=== PATIENT | female | born 1935 | race Hispanic/Latino ===

== ENCOUNTER 2016-08-23 17:51 | Outpatient (CLI) | payer MEDICARE ==
[2016-08-23 19:30] LABS: #Basophils 0.2 thou/uL (0.0-0.2); #Eosinphils 0.3 thou/uL (0.0-0.7); #Lymphocytes 2.7 thou/uL (1.20-3.40); #Monocytes 0.7 thou/uL (0.11-0.59); #Neutrophils 6.5 thou/uL (1.40-6.50); %Eosinophils 3.2 % (0.0-10.0); %Monocytes 6.8 % (0.0-10.0); Hematocrit 43.7 % (36.0-47.0); Mean Platelet Volume 5.9 fL (7.4-10.4); Red Blood Cell (RBC) Count 4.89 mill/uL (4.20-5.40); White Blood Cell (WBC) Count 10.5 thou/uL (4.8-10.8)
[2016-08-23 21:07] LABS: ALT (SGPT) 22 U/L (0-55); AST (SGOT) 27 U/L (5-34); Alkaline Phosphatase 93 U/L (40-150); Anion Gap 19 mmol/L (10-20); BUN (Urea Nitrogen) 14 mg/dL (9.8-20.1); Bilirubin, Total 0.3 mg/dL (0.2-1.2); Calc. Creatinine Clearance 0 mL/min (70-130); Calcium 9.4 mg/dL (7.8-10.44); Carbon Dioxide 20 mmol/L (23-31); Chloride 107 mmol/L (98-107); Estimated GFR-MDRD 47; Globulin 3.2 g/dL (2.4-3.5); LDL Cholesterol, Calculated 139 mg/dL
== END 2016-08-23 17:52 | disposition home or self-care (01) ==
LOC: HPCALD 17:51
PROVIDERS: ATTEND Family Medicine
DX: E78.5 Hyperlipidemia, unspecified (principal); E89.0 Postprocedural hypothyroidism; I10 Essential (primary) hypertension
CPT/HCPCS: 80053; 80061; 84439; 84443; 85025

== ENCOUNTER 2016-09-01 14:40 | Emergency (ER) | payer MEDICARE ==
--- NOTE | 2016-09-01 16:23 | ERRECORD ---
[facility] EMERGENCY RECORD HPI FLU-LIKE SYNDROME (16:01 [facility]) CHIEF COMPLAINT: Patient presents for evaluation of body aches, Denies fever, Patient presents for evaluation of upper respiratory infection, Patient presents for evaluation of cough and sore throat. HISTORIAN: History provided by patient. LOCATION: Symptoms are generalized. QUALITY: Unable to describe the quality of the pain. SEVERITY: Maximum severity of symptoms mild, Currently symptoms are mild. TIME COURSE: Gradual onset of symptoms, 15, hours prior to arrival, There has been no change in the patient's symptoms over time. ASSOCIATED WITH: No associated abdominal pain, No associated chest pain, Associated with cough, No associated diarrhea, No associated headache, No associated vomiting, No associated neck pain, No associated rash, No associated shortness of breath, No associated urinary tract infection signs or symptoms. EXACERBATED BY: Patient's condition exacerbated by nothing. RELIEVED BY: Patient's condition relieved by nothing. ROS (16:01 [facility]) CONSTITUTIONAL: Historian denies chills, denies fatigue, denies fever, denies night sweats, denies weakness. EYES: Negative eye review of systems. ENT: Historian reports otalgia, denies otorrhea, reports rhinorrhea, reports sore throat, reports voice changes. right neck to right ear. CARDIOVASCULAR: Negative cardiovascular review of systems. RESPIRATORY: Historian reports cough. GI: Negative gastrointestinal review of systems. GENITOURINARY FEMALE: Negative genitourinary review of systems. MUSCULOSKELETAL: Historian reports arthralgias, reports myalgias. SKIN: Negative skin review of systems. NEUROLOGIC: Historian reports headache. ENDOCRINE: Negative endocrine review of systems. PSYCHIATRIC: Negative psychiatric review of systems. PAST MEDICAL HISTORY MEDICAL HISTORY: Past medical history includes endocrine disease, hypothyroidism, Past medical history includes gastrointestinal disease, gastroesophageal reflux disease, Past medical history includes history of hyperlipidemia, history of hypertension. (14:58 [facility]) FEMALE SURGICAL HISTORY: Surgical history of thyroidectomy, Notes: PARTIAL AT AGE 41. (14:58 [facility]) PSYCHIATRIC HISTORY: No previous psychiatric history. (14:58 [facility]) SOCIAL HISTORY: Patient denies alcohol use, Patient denies drug use, Patient has no smoking history. (14:58 [facility]) &a-1R&a+25V*p+0X*v9761P*c202B*c15G*c2P*p-0X&a-25V&a+1R Name: Lyudmila Florence : 1935 F80 MedRec: [id number] AcctNum: [id number] Prepared: Sat Sep 01, 2016 22:51 by Interface Page 1 of 3 pMD [facility] EMERGENCY RECORD NOTES: I have reviewed the nursing documentation regarding PMHX, social hx, family hx, and surgical history as well as vitals and triage notes and agree. (15:30 [facility]) KNOWN ALLERGIES codeine phosphate (bulk): Reaction: Rash, Source: Patient CURRENT MEDICATIONS gemfibrozil: TABLET : Strength - 600 mg : ORAL Patient Dose: 2 tab(s) Oral 2 times a day. (14:50 [facility]) levothyroxine: TABLET : Strength - 75 mcg : ORAL Patient Dose: 1 tab(s) Oral once a day (in the morning). (14:51 [facility]) pantoprazole: TABLET, DELAYED RELEASE (ENTERIC COATED) : Strength - 40 mg : ORAL Patient Dose: 1 tab(s) Oral once a day. (14:52 [facility]) atenolol: TABLET : Strength - 25 mg : ORAL Patient Dose: 1 tab(s) Oral once a day (in the morning). (14:52 [facility]) amLODIPine: TABLET : Strength - 10 mg : ORAL Patient Dose: 1 tab(s) Oral once a day. (14:53 [facility]) aspirin: TABLET : Strength - 325 mg : ORAL Patient Dose: 1 tab(s) null once a day. (14:53 [facility]) ZyrTEC: TABLET : Strength - 10 mg : ORAL Patient Dose: 1 tab(s) Oral once a day. (14:54 [facility]) Glucosamine: TABLET : Strength - 500 mg : ORAL Patient Dose: 2 tab(s) Oral once a day. (14:54 [facility]) VITAL SIGNS VITAL SIGNS: BP: 166/75, Pulse: 60, Resp: 18, Temp: 98.4 (Oral), Pain: 6, O2 sat: 96, Time: 09/01/2016 14:47. (14:47 [facility]) BP: 138/81, Pulse: 60, Resp: 18, Temp: 98.3 (Oral), Pain: 3, O2 sat: 97, Time: 09/01/2016 16:10. (16:10 [facility]) PHYSICAL EXAM (16:01 [facility]) CONSTITUTIONAL: Vital signs reviewed, Patient afebrile, Pulse normal, Blood pressure normal, Respiratory rate normal, Patient appears non toxic, Patient appears pain free, Patient alert and oriented to person, place and time. HEAD: Head exam normal, Head exam included findings of head atraumatic, normocephalic. EYES: Eye exam normal, Eye exam included findings of eyelids normal to inspection, Pupils equally round and reactive to light, &a-1R&a+25V*p+0X*j1169V*c202B*c15G*c2P*p-0X&a-25V&a+1R Name: Lyudmila Florence : 1935 F80 MedRec: [id number] AcctNum: [id number] Prepared: Sat Sep 01, 2016 22:51 by Interface Page 2 of 3 pMD [facility] EMERGENCY RECORD Extraocular muscles intact, Conjunctiva normal, Sclera normal, Fundoscopic exam normal. ENT: ENT exam normal, Ear exam normal, Nose exam included findings of, congestion and rhinorrhea, Pharynx exam normal, Uvula exam normal, Tonsil exam normal, Mouth exam normal, teeth normal. NECK: Neck exam normal, Neck exam included findings of normal range of motion, Trachea midline, no meningeal signs. RESPIRATORY CHEST: Respiratory and chest exam normal, Respiratory exam included findings of no respiratory distress, Breath sounds clear. CARDIOVASCULAR: Cardiovascular assessment normal, Cardiovascular exam included findings of heart rate regular rate and rhythm, Heart sounds normal. ABDOMEN FEMALE: Abdominal exam normal, Abdominal exam included findings of abdomen nontender, Bowel sounds normal, Liver normal, Spleen normal, no distension, no peritoneal signs. BACK: Back exam normal. UPPER EXTREMITY: Upper extremity exam normal. LOWER EXTREMITY: Lower extremity exam normal. NEURO: Neuro exam normal, [place] coma scale 15, Neuro exam findings include patient oriented to person, place and time, Speech normal, Gait normal, Memory normal, Cranial nerves intact. SKIN: Skin exam normal, Skin exam included findings of skin warm, dry, and normal in color, no rash. LYMPHATIC: Lymphatic exam normal. PSYCHIATRIC: Psychiatric exam included findings of patient oriented to person place and time, Normal affect, Judgment normal, Insight normal, Remote memory normal, Recent memory normal, Concentration normal. PROBLEM LIST No recorded problems DIAGNOSIS (16:05 [facility]) FINAL: PRIMARY: upper respiratory infection. PRESCRIPTION No recorded prescriptions DISPOSITION PATIENT: Disposition Type: Discharge, Disposition: *Discharge Home. (16:05 [facility]) Patient left the department. (16:16 [facility]) Martinez: RASHIDA=MD Conor, Ender FRIEDMAN=MAGNUS Taylor, Leslie &a-1R&a+25V*p+0X*d1205C*c202B*c15G*c2P*p-0X&a-25V&a+1R Name: Lyudmila Florence : 1935 F80 MedRec: [id number] AcctNum: [id number] Prepared: Federico Sep 01, 2016 22:51 by Interface Page 3 of 3 pMD MTDD
--- NOTE | 2016-09-01 16:28 | PICIS ---
[facility] EMERGENCY RECORD TRIAGE (14:49 [facility]) TRIAGE NOTES: SORE THROAT AND COUGH STARTED YESTERDAY. (14:49 [facility]) PATIENT: NAME: Lyudmila Florence, AGE: 80, GENDER: female, : Sat1935, TIME OF GREET: Sat Sep 01, 2016 14:41, PREFERRED LANGUAGE: Trinidadian, ETHNICITY: or , ECODE BILLING MAP: [facility], SSN: [id number], Zip Code: [address], KG WEIGHT: 63.5 (est.), PHONE: , , , PERSON ID: [id number], PAYMENT: X Medicare, PCP: MD Butterfield Kyle. (14:49 [facility]) COMPLAINT: Throat Pain. (14:49 [facility]) ADMISSION: URGENCY: 4 Non Urgent, ADMISSION SOURCE: Home, TRANSPORT: CAR, BED: WAIT. (14:49 [facility]) IMMUNIZATIONS: Flu vaccine up to date, Tetanus immunization up to date, Pneumococcal vaccine up to date. (14:58 [facility]) SIRS SCORING: Heart Rate 55-109 (0), Temp range 96.8-101.1 (0), respiratory rate 12-24 (0), Mental Status altered: no (0). (14:58 [facility]) TRIAGE SCREENING: Patient denies suicidal ideation, Patient denies presence of domestic violence. (14:58 [facility]) TREATMENTS IN PROGRESS: Treatments given Prehospital: TYLENOL 1300. (14:58 [facility]) PROVIDERS: TRIAGE NURSE: Leslie Taylor RN. (14:49 [facility]) VITAL SIGNS: BP 166/75, Pulse 60, Resp 18, Temp 98.4, (Oral), Pain 6, O2 Sat 96, Time 09/01/2016 14:47. (14:47 [facility]) PREVIOUS VISIT ALLERGIES: codeine phosphate (bulk). (14:49 [facility]) codeine phosphate (bulk). (14:58 [facility]) KNOWN ALLERGIES codeine phosphate (bulk): Reaction: Rash, Source: Patient CURRENT MEDICATIONS gemfibrozil: TABLET : Strength - 600 mg : ORAL Patient Dose: 2 tab(s) Oral 2 times a day. (14:50 [facility]) levothyroxine: TABLET : Strength - 75 mcg : ORAL Patient Dose: 1 tab(s) Oral once a day (in the morning). (14:51 [facility]) pantoprazole: TABLET, DELAYED RELEASE (ENTERIC COATED) : Strength - 40 mg : ORAL Patient Dose: 1 tab(s) Oral once a day. (14:52 [facility]) atenolol: TABLET : Strength - 25 mg : ORAL Patient Dose: 1 tab(s) Oral once a day (in the morning). (14:52 [facility]) amLODIPine: TABLET : Strength - 10 mg : ORAL Patient Dose: 1 tab(s) Oral once a day. (14:53 [facility]) aspirin: &a-1R&a+25V*p+0X*y0080E*c202B*c15G*c2P*p-0X&a-25V&a+1R Name: Lyudmila Florence : 1935 F80 MedRec: [id number] AcctNum: [id number] Prepared: Sat Sep 01, 2016 22:57 by Interface Page 1 of 6 pMD [facility] EMERGENCY RECORD TABLET : Strength - 325 mg : ORAL Patient Dose: 1 tab(s) null once a day. (14:53 [facility]) ZyrTEC: TABLET : Strength - 10 mg : ORAL Patient Dose: 1 tab(s) Oral once a day. (14:54 [facility]) Glucosamine: TABLET : Strength - 500 mg : ORAL Patient Dose: 2 tab(s) Oral once a day. (14:54 [facility]) VITAL SIGNS VITAL SIGNS: BP: 166/75, Pulse: 60, Resp: 18, Temp: 98.4 (Oral), Pain: 6, O2 sat: 96, Time: 09/01/2016 14:47. (14:47 [facility]) BP: 138/81, Pulse: 60, Resp: 18, Temp: 98.3 (Oral), Pain: 3, O2 sat: 97, Time: 09/01/2016 16:10. (16:10 [facility]) NURSING PROCEDURE: DISCHARGE NOTE (16:13 [facility]) DISCHARGE: Patient discharged to home, ambulating without assistance, family driving, accompanied by //partner, Summary of Care printed/ provided, Patient requested and was provided an electronic copy of Discharge Instructions, Transition record given to patient, Discharge instructions given to patient, Simple or moderate discharge teaching performed, Patient treated and evaluated by physician. ORDER DETAILS Order Name: Influenza A&B Ag Screen, Status: Active, Time: 15:10 09/01/2016, User: IDALIA, - Ordered for: MD Perdomo Darren, - Entered by: MAGNUS Taylor Rebecca - Federico Sep 01, 2016 15:10, - Quantity: 1, Order Name: Strep Group A Screen, Status: Active, Time: 15:11 09/01/2016, User: [email or web address], - Ordered for: MD Perdomo Darren, - Entered by: MAGNUS Taylor Rebecca - Federico Sep 01, 2016 15:11, - Quantity: 1. HPI FLU-LIKE SYNDROME (16:01 [facility]) CHIEF COMPLAINT: Patient presents for evaluation of body aches, Denies fever, Patient presents for evaluation of upper respiratory infection, Patient presents for evaluation of cough and sore throat. HISTORIAN: History provided by patient. LOCATION: Symptoms are generalized. QUALITY: Unable to describe the quality of the pain. SEVERITY: Maximum severity of symptoms mild, Currently symptoms are mild. TIME COURSE: Gradual onset of symptoms, 15, hours prior to arrival, There has been no change in the patient's symptoms over time. ASSOCIATED WITH: No associated abdominal pain, No associated chest pain, Associated with &a-1R&a+25V*p+0X*c4782W*c202B*c15G*c2P*p-0X&a-25V&a+1R Name: Lyudmila Florence : 1935 F80 MedRec: [id number] AcctNum: [id number] Prepared: Sat Sep 01, 2016 22:57 by Interface Page 2 of 6 pMD [facility] EMERGENCY RECORD cough, No associated diarrhea, No associated headache, No associated vomiting, No associated neck pain, No associated rash, No associated shortness of breath, No associated urinary tract infection signs or symptoms. EXACERBATED BY: Patient's condition exacerbated by nothing. RELIEVED BY: Patient's condition relieved by nothing. [facility] CONSTITUTIONAL: Historian denies chills, denies fatigue, denies fever, denies night sweats, denies weakness. EYES: Negative eye review of systems. ENT: Historian reports otalgia, denies otorrhea, reports rhinorrhea, reports sore throat, reports voice changes. right neck to right ear. CARDIOVASCULAR: Negative cardiovascular review of systems. RESPIRATORY: Historian reports cough. GI: Negative gastrointestinal review of systems. GENITOURINARY FEMALE: Negative genitourinary review of systems. MUSCULOSKELETAL: Historian reports arthralgias, reports myalgias. SKIN: Negative skin review of systems. NEUROLOGIC: Historian reports headache. ENDOCRINE: Negative endocrine review of systems. PSYCHIATRIC: Negative psychiatric review of systems. PAST MEDICAL HISTORY MEDICAL HISTORY: Past medical history includes endocrine disease, hypothyroidism, Past medical history includes gastrointestinal disease, gastroesophageal reflux disease, Past medical history includes history of hyperlipidemia, history of hypertension. (14:58 [facility]) FEMALE SURGICAL HISTORY: Surgical history of thyroidectomy, Notes: PARTIAL AT AGE 41. (14:58 [facility]) PSYCHIATRIC HISTORY: No previous psychiatric history. (14:58 [facility]) SOCIAL HISTORY: Patient denies alcohol use, Patient denies drug use, Patient has no smoking history. (14:58 [facility]) NOTES: I have reviewed the nursing documentation regarding PMHX, social hx, family hx, and surgical history as well as vitals and triage notes and agree. (15:30 [facility]) PHYSICAL EXAM (16:01 [facility]) CONSTITUTIONAL: Vital signs reviewed, Patient afebrile, Pulse normal, Blood pressure normal, Respiratory rate normal, Patient appears non toxic, Patient appears pain free, Patient alert and oriented to person, place and time. HEAD: Head exam normal, Head exam included findings of head atraumatic, normocephalic. EYES: Eye exam normal, Eye exam included findings of eyelids normal to inspection, Pupils equally round and reactive to light, &a-1R&a+25V*p+0X*u2012E*c202B*c15G*c2P*p-0X&a-25V&a+1R Name: Lyudmila Florence : 1935 F80 MedRec: [id number] AcctNum: [id number] Prepared: Sat Sep 01, 2016 22:57 by Interface Page 3 of 6 pMD [facility] EMERGENCY RECORD Extraocular muscles intact, Conjunctiva normal, Sclera normal, Fundoscopic exam normal. ENT: ENT exam normal, Ear exam normal, Nose exam included findings of, congestion and rhinorrhea, Pharynx exam normal, Uvula exam normal, Tonsil exam normal, Mouth exam normal, teeth normal. NECK: Neck exam normal, Neck exam included findings of normal range of motion, Trachea midline, no meningeal signs. RESPIRATORY CHEST: Respiratory and chest exam normal, Respiratory exam included findings of no respiratory distress, Breath sounds clear. CARDIOVASCULAR: Cardiovascular assessment normal, Cardiovascular exam included findings of heart rate regular rate and rhythm, Heart sounds normal. ABDOMEN FEMALE: Abdominal exam normal, Abdominal exam included findings of abdomen nontender, Bowel sounds normal, Liver normal, Spleen normal, no distension, no peritoneal signs. BACK: Back exam normal. UPPER EXTREMITY: Upper extremity exam normal. LOWER EXTREMITY: Lower extremity exam normal. NEURO: Neuro exam normal, [place] coma scale 15, Neuro exam findings include patient oriented to person, place and time, Speech normal, Gait normal, Memory normal, Cranial nerves intact. SKIN: Skin exam normal, Skin exam included findings of skin warm, dry, and normal in color, no rash. LYMPHATIC: Lymphatic exam normal. PSYCHIATRIC: Psychiatric exam included findings of patient oriented to person place and time, Normal affect, Judgment normal, Insight normal, Remote memory normal, Recent memory normal, Concentration normal. EVENTS TRANSFER: Triage to Emergency Waiting. (Sat Sep 01, 2016 14:49 [facility]) Emergency Waiting to Emergency Room -02. (15:11 [facility]) Removed from Emergency Emergency Room -02. (16:16 [facility]) O2SAT INTERPRETATION (16:04 [facility]) O2SAT: Single pulse oximetry, Oxygen saturation 96%, on room air, Oxygen saturation interpretation: Normal, No intervention required. PROBLEM LIST No recorded problems DIAGNOSIS (16:05 [facility]) FINAL: PRIMARY: upper respiratory infection. DISPOSITION PATIENT: Disposition Type: Discharge, Disposition: *Discharge Home. (16:05 [facility]) &a-1R&a+25V*p+0X*y8548W*c202B*c15G*c2P*p-0X&a-25V&a+1R Name: Lyudmila Florence : 1935 F80 MedRec: [id number] AcctNum: [id number] Prepared: Sat Sep 01, 2016 22:57 by Interface Page 4 of 6 pMD [facility] EMERGENCY RECORD Patient left the department. (16:16 [facility]) INSTRUCTION (16:06 [facility]) DISCHARGE: UPPER RESP INFECTION NO ANTIBIOTIC TREATMENT ADULT. FOLLOWUP: MD [facility], [facility], [address] [place] [address], . SPECIAL: Afrin nasal spray at bedtime will decrease nasal secretions and cough. You may use Sudafed during the day for nasal congestion as well. Aleve 2 twice a day with food will decrease pain, body aches and fever. Oral rehydration with small volumes of gatorade or powerade frequently. [place] diet with no milk or caffeine. Return for signs of dehydration that we discussed. Return for fevers >2 days, shortness of breath or other concerns. PRESCRIPTION No recorded prescriptions IMAGING *SUPPLY CHARGE SHEET: Image captured from scanner. (16:14 [facility]) *DISCHARGE INSTRUCTIONS RECEIPT: Image captured from scanner. (16:16 [facility]) ADMIN (22:51 [facility]) DIGITAL SIGNATURE: MD Perdomo Darren. RESULTS (15:56 [facility]) MICROBIOLOGY: Influenza A&B Ag Screen: [id number] Collection DT: Sat Sep 01, 2016 15:40, See comment below , @ ER ROOM#: WAIT[TxData]:ER.BED Source: Nasopharyngeal swab Spec Desc: , Influenza A Antigen: NEGATIVE for the , presence of , INFLUENZA A Antigen , Influenza B Antigen: NEGATIVE for the , presence of , INFLUENZA B Antigen , The rapid Flu A&B test can distinguish between influenza A , Influenza A&B Ag Screen See comment below , and B viruses, but it does not differentiate influenza , Influenza A&B Ag Screen See comment below , subtypes. , Influenza A&B Ag Screen See comment below , Influenza A&B Ag Screen See comment below , Influenza A&B Ag Screen See comment below , Influenza A&B Ag Screen See comment below , characteristics of this device with human specimens infected , Influenza A&B Ag Screen See comment below , with the 2009 H1N1 &a-1R&a+25V*p+0X*g6494S*c202B*c15G*c2P*p-0X&a-25V&a+1R Name: Lyudmila Florence : 1935 F80 MedRec: [id number] AcctNum: [id number] Prepared: Sat Sep 01, 2016 22:57 by Interface Page 5 of 6 pMD [facility] EMERGENCY RECORD influenza virus have not been , Influenza A&B Ag Screen See comment below , established. For example: this test cannot distinguish , Influenza A&B Ag Screen See comment below , influenza infections caused by novel H1N1 influenza A , Influenza A&B Ag Screen See comment below , viruses versus seasonal influenza A viruses. , Influenza A&B Ag Screen See comment below , , Influenza A&B Ag Screen See comment below , A negative result does not exclude influenza virus , Influenza A&B Ag Screen See comment below , infection; therefore, if more conclusive testing is desired, , Influenza A&B Ag Screen See comment below , follow up confirmatory testing is warranted., Influenza A&B Ag Screen See comment below . Strep Group A Screen: [id number] Collection DT: Sat Sep 01, 2016 15:34, See comment below , @ ER ROOM#: WAIT[TxData]:ER.BED Source: Tonsil Spec Desc: PENDING, Strep A Negative CDC recommends , confirmation by , culture on all , negative , Strep negative line 1 Group A , Streptococcus rapid , screens. Please , order , Strep negative line 2 a throat culture if , clinically , indicated. , Rapid Strep Screen:Throat Negative . Martinez: KEEGAN=MERLINE Shaffer, November RASHIDA=MD Conor, Ender YAIC=MAGNUS Taylor, Leslie &a-1R&a+25V*p+0X*o8537J*c202B*c15G*c2P*p-0X&a-25V&a+1R Name: Lyudmila Florence : 1935 F80 MedRec: [id number] AcctNum: [id number] Prepared: Sat Sep 01, 2016 22:57 by Interface Page 6 of 6 pMD MTDD
== END 2016-09-01 16:12 | disposition home or self-care (01) ==
LOC: BURERS 14:40
DX: J06.9 Acute upper respiratory infection, unspecified (principal); K21.9 Gastro-esophageal reflux disease without esophagitis; I10 Essential (primary) hypertension; E03.9 Hypothyroidism, unspecified
CPT/HCPCS: 87430; 99283

== ENCOUNTER 2016-12-13 07:33 | Emergency (ER) | payer MEDICARE ==
[2016-12-13 08:12] LABS: Hemoglobin 13.5 g/dL (12.0-16.0); Mean Corpuscular HGB CONC 32.6 g/dL (32.0-36.0); Mean Corpuscular Hemoglobin 27.7 pg (27.0-31.0); Mean Platelet Volume 7.3 fL (7.4-10.4); Platelet Count 552 thou/uL (130-400); Red Blood Cell (RBC) Count 4.86 mill/uL (4.20-5.40); White Blood Cell (WBC) Count 22.8 thou/uL (4.8-10.8)
[2016-12-13 08:28] LABS: Eosinophils 5 % (0-10); Lymphocytes 15 % (21-51); MDiff Complete? YES; Monocytes 9 % (0-10); Neutrophil 71 % (42-75); PLT Morphology Comment Appears Increased
[2016-12-13] MEDS ORDERED: cefTRIAXone\\ROCEPHIN 1 GM VIAL ONE (08:49)
[2016-12-13] MEDS ORDERED: Sodium Chloride 0.9% 100 ML ONE (08:49)
[2016-12-13 09:31] LABS: Bilirubin Negative (Negative); Blood, Urine Negative (Negative); Clarity Clear (Clear); Glucose, Urine (Dipstick) Negative (Negative); Leukocyte Negative (Negative); Nitrite Negative (Negative); Protein, Urine (Dipstick) Negative (Neg-Trace); Urobilinogen 0.2 mg/dL (0.2-1.0); pH, Urine 5.5 (5.0-9.0)
[2016-12-13 09:49] LABS: ALT (SGPT) 10 U/L (0-55); AST (SGOT) 16 U/L (5-34); Albumin 4.1 g/dL (3.4-4.8); Alkaline Phosphatase 95 U/L (40-150); Anion Gap 16 mmol/L (10-20); BUN (Urea Nitrogen) 14 mg/dL (9.8-20.1); Bilirubin, Total 0.3 mg/dL (0.2-1.2); Calc. Creatinine Clearance 0 mL/min (70-130); Carbon Dioxide 19 mmol/L (23-31); Chloride 109 mmol/L (98-107); Estimated GFR-MDRD 60; Globulin 3.5 g/dL (2.4-3.5); Glucose 93 mg/dL (83-110); Potassium 3.9 mmol/L (3.5-5.1); Protein, Total 7.6 g/dL (5.8-8.1); Sodium 140 mmol/L (136-145)
--- NOTE | 2016-12-13 19:58 | RAD ---
PORTABLE CHEST 12/13/16 An AP portable film at 0853 is compared with an 03/25/13 study. Mild cardiomegaly is approximately the same as before. there is no vascular congestion, edema or ple ural effusion. The lungs are clear with no sign of pneumonia. Faint calcification is seen in the aor tic arch. IMPRESSION: Mild cardiomegaly but no acute finding. POS: HOME
== END 2016-12-13 10:08 | disposition home or self-care (01) ==
LOC: BURERS 07:33
DX: B34.9 Viral infection, unspecified (principal); E03.9 Hypothyroidism, unspecified; K21.9 Gastro-esophageal reflux disease without esophagitis; E78.5 Hyperlipidemia, unspecified; I10 Essential (primary) hypertension
CPT/HCPCS: 36415; 71010; 80053; 81003; 83605; 85025; 87040; 87086; 96361; 96365; A4353; J0696; J7050

== ENCOUNTER 2017-02-27 09:49 | Outpatient (CLI) | payer MEDICARE ==
[2017-02-27 11:54] LABS: #Basophils 0.1 thou/uL (0.0-0.2); #Eosinphils 0.4 thou/uL (0.0-0.7); #Lymphocytes 2.3 thou/uL (1.20-3.40); #Monocytes 0.6 thou/uL (0.11-0.59); #Neutrophils 8.7 thou/uL (1.40-6.50); %Basophils 1.2 % (0.0-1.0); %Eosinophils 3.2 % (0.0-10.0); %Lymphocytes 18.6 % (21.0-51.0); %Monocytes 5.1 % (0.0-10.0); %Neutrophils 71.8 % (42.0-75.0); Hemoglobin 12.9 g/dL (12.0-16.0); Mean Corpuscular HGB CONC 33.5 g/dL (32.0-36.0); Mean Corpuscular Hemoglobin 28.9 pg (27.0-31.0); Mean Corpuscular Volume 86.1 fl (81.0-99.0); Mean Platelet Volume 6.8 fL (7.4-10.4); Platelet Count 481 thou/uL (130-400); RBC Distribution Width 13.3 % (11.5-14.5); Red Blood Cell (RBC) Count 4.47 mill/uL (4.20-5.40); White Blood Cell (WBC) Count 12.1 thou/uL (4.8-10.8)
[2017-02-27 12:16] LABS: ALT (SGPT) 17 U/L (8-55); AST (SGOT) 23 U/L (5-34); Albumin 4.3 g/dL (3.4-4.8); Alkaline Phosphatase 92 U/L (40-150); Anion Gap 15 mmol/L (10-20); BUN (Urea Nitrogen) 14 mg/dL (9.8-20.1); Bilirubin, Total 0.3 mg/dL (0.2-1.2); Calc. Creatinine Clearance 0 mL/min (70-130); Calcium 9.2 mg/dL (7.8-10.44); Carbon Dioxide 22 mmol/L (23-31); Chloride 109 mmol/L (98-107); Cholesterol 185 mg/dl (< 200 Desired); Estimated GFR-MDRD 55; Glucose 91 mg/dL (83-110); HDL Cholesterol 46 mg/dL (>60 Neg Risk); LDL Cholesterol, Calculated 124 mg/dL; Potassium 4.4 mmol/L (3.5-5.1); Protein, Total 7.3 g/dL (6.0-8.3); Sodium 142 mmol/L (136-145); Triglycerides 77 mg/dL (Less than 150)
[2017-02-27 12:29] LABS: Free T4 (Free Thyroxine) 1.01 ng/dL (0.70-1.48); Vitamin D, 25 Hydroxy 37.1 ng/ml (> 30.0)
== END 2017-02-27 09:50 | disposition home or self-care (01) ==
LOC: HPCALD 09:49
PROVIDERS: ATTEND Family Medicine
DX: E78.5 Hyperlipidemia, unspecified (principal); E55.9 Vitamin D deficiency, unspecified; E89.0 Postprocedural hypothyroidism; I10 Essential (primary) hypertension
CPT/HCPCS: 36415; 80053; 80061; 82306; 84439; 84443; 85025

== ENCOUNTER 2018-05-02 23:06 | Emergency (ER) | payer MEDICARE | END 2018-05-02 23:55 | disposition home or self-care (01) | LOC: BURERS 23:06 | DX: T63.2X1A Toxic effect of venom of scorpion, accidental (unintentional), initial encounter (principal); E03.9 Hypothyroidism, unspecified; K21.9 Gastro-esophageal reflux disease without esophagitis; E78.5 Hyperlipidemia, unspecified; I10 Essential (primary) hypertension; Z79.899 Other long term (current) drug therapy; Z79.82 Long term (current) use of aspirin; Z79.01 Long term (current) use of anticoagulants | CPT/HCPCS: 99282 ==

== ENCOUNTER 2018-08-06 09:33 | Outpatient (CLI) | payer MEDICARE ==
--- NOTE | 2018-08-06 20:45 | ULT ---
LEFT LOWER EXTREMITY VENOUS ULTRASOUND: 08/06/18 Color duplex doppler ultrasonography of the deep veins of left lower extremity was performed. There i s a prior history of DVT. All deep veins are freely compressible from groin to ankle. There was no evidence of echogenic clot. There was normal doppler response to augmentation maneuvers. IMPRESSION: No evidence of DVT. POS: HOME
== END 2018-08-06 09:34 | disposition home or self-care (01) ==
LOC: BURULT 09:33
PROVIDERS: ATTEND Family Medicine
DX: I82.402 Acute embolism and thrombosis of unspecified deep veins of left lower extremity (principal); M79.605 Pain in left leg

== ENCOUNTER 2018-10-01 10:56 | Observation (INO) | payer MEDICARE ==
[2018-10-01] MEDS ORDERED: Ketamine 50 MG/ML (10ML VIAL) ONE (12:20)
[2018-10-01 14:04] VITALS: BMI 25.9
[2018-10-01] MEDS ORDERED: Acetaminophen 325 MG TAB PO PRN (14:37)
[2018-10-01] MEDS: HYDROcodone/Acetaminophen 5/325 mg Tablet PO PRN ×2 (15:00→21:09)
--- NOTE | 2018-10-01 16:28 | RAD ---
LEFT WRIST THREE VIEWS: Date: 10-01-18 FINDINGS: An impacted fracture of the distal radius is present with some dorsal angulation of the distal fragme nt. The ulnar styloid base is not adequately assessed, but I would not be surprised if there was a no ndisplaced fracture here. The scapholunate distance is borderline at 2.6 mm. This can sometimes signi fy scapholunate dissociation. Carpals are otherwise unremarkable. IMPRESSION: Impacted angulated fracture of the distal radius. POS: HOME
--- NOTE | 2018-10-01 16:29 | RAD ---
RIGHT WRIST THREE VIEWS: Date: 10-01-18 FINDINGS: An impacted fracture of the distal radius is present with no angulation or displacement. Ulnar styloi d appears intact. All carpal bones appeared intact. The scapholunate distance was upper normal to bor derline. IMPRESSION: Nondisplaced impacted fracture of the distal radius. POS: HOME
--- NOTE | 2018-10-01 16:30 | RAD ---
LEFT WRIST TWO VIEWS (POST REDUCTION): Date: 10-01-18 FINDINGS: The patient is in splint. There has been reduction of the distal radial fracture with improvement in angulation. I do not see any ulnar styloid fracture. The scapholunate distance continues to be slight ly increased. IMPRESSION: Improvement in angulation of radial fracture. I cannot rule out scapholunate dissociation. POS: HOME
[2018-10-01] MEDS ORDERED: Ibuprofen 800 MG TAB PO PRN (16:55)
[2018-10-01] MEDS ORDERED: Ondansetron ODT 4 MG TAB PO PRN (16:55)
[2018-10-01] MEDS ORDERED: Enoxaparin Sodium 30 MG/0.3 ML SYRINGE SC SCH (21:00)
[2018-10-01] MEDS: GEMFIBROZIL 600 MG PO SCH (23:36)
--- NOTE | 2018-10-02 02:13 | HP ---
CHIEF COMPLAINT: Bilateral wrist pain, status post fall. HISTORY OF PRESENT ILLNESS: An 83-year-old female presented to the [facility] Emergency Department earlier today with complaints of bilateral wrist pain, status post fall at home. States she slipped on wet grass when making a turn and causing her to fall on outstretched hands. Subsequent imaging reveals distal radius fractures on both the left and right side. The left wrist was notably displaced and required reduction, which was managed without sedation, requiring only a hematoma block. Both wrists were subsequently splinted. The patient does typically live alone, and due to her physical limitations, she is being admitted under observation status for pain control evaluation and treatment via occupational therapy. We will need to ascertain any potential durable medical equipment that the patient may need for her home setting in regard to this injury. The patient is comfortable at this time. Her granddaughter is present at the time of examination of the patient. They report that the patient will not go home by herself upon discharge and will instead stay with her daughter who lives in [place]. They also plan to have followup with an orthopedist in [place] for further care upon discharge. PAST MEDICAL HISTORY: Hypertension, hyperlipidemia, hypothyroidism, gastroesophageal reflux disease, and history of DVT. PAST SURGICAL HISTORY: Partial thyroidectomy and hysterectomy. SOCIAL HISTORY: She is a nonsmoker with no illicit drug use or frequent EtOH. ALLERGIES: MILK PRODUCTS, CODEINE, AND TRAMADOL. FAMILY HISTORY: Noncontributory. CURRENT MEDICATIONS: 1. Amlodipine 10 mg p.o. daily. 2. Aspirin 81 mg p.o. daily. 3. Atenolol 25 mg p.o. daily. 4. Famotidine 20 mg p.o. daily. 5. Hydrochlorothiazide 12.5 mg p.o. daily. 6. Levothyroxine 75 mcg p.o. daily. 7. Lisinopril 10 mg p.o. daily. REVIEW OF SYSTEMS: GENERAL: The patient denies fever or fatigue. EARS, NOSE, AND THROAT: Denies sore throat, nasal drainage, or congestion. CARDIOVASCULAR: Denies chest pain or palpitations. RESPIRATORY: Denies shortness of breath or cough. GASTRO: Denies abdominal pain, nausea, vomiting, diarrhea, or constipation. GENITOURINARY: Denies dysuria. MUSCULOSKELETAL: Complains of bilateral wrist pain. DERM: Denies rash. NEURO: Denies headache. PHYSICAL EXAMINATION: VITAL SIGNS: Temperature is 97.6, pulse is 58, respiratory rate is 18, oxygen is 99% on room air, and blood pressure is 154/68. GENERAL: The patient is alert and oriented, in no acute distress. HEENT: Eyes, conjunctivae are clear. Sclerae are clear. Pupils are equal and reactive to light. Extraocular muscles are intact bilaterally. Head, eyes, ears, nose, and throat are within normal limits. NECK: Supple. CARDIOVASCULAR: Regular rate and rhythm. Normal S1 and S2. No murmurs. RESPIRATORY: Clear to auscultation bilaterally with no wheezes, rales, or rhonchi. GASTROINTESTINAL: Soft, nontender to palpation. EXTREMITIES: No clubbing, cyanosis, or edema. MUSCULOSKELETAL: The patient has splints to bilateral upper extremities. Crepitus to bilateral knees, left greater than right. SKIN: No rash. NEUROLOGIC: Nonfocal. Cranial nerves 2 through 12 are grossly intact. IMAGING STUDIES: On 10/01/2018, initial left wrist x-ray shows impacted angulated fracture of the distal radius. Followup left x-ray after reduction shows improvement in angulation of radial fracture, cannot rule out scapholunate dissociation. On 10/01/2018, x-ray of the right wrist shows nondisplaced impacted fracture of the distal radius. ASSESSMENT AND PLAN: 1. Left and right distal radius fracture, status post reduction of the left wrist. The patient will be provided pain control. We will have an evaluation via occupational therapy to ascertain if any durable medical equipment she may need for the home setting. The patient plans to follow up in [place] to see an orthopedist there upon discharge in the outpatient setting. 2. Hypertension. We will resume the patient's home blood pressure medications. 3. Hyperlipidemia. We will resume the patient's statin. 4. Hypothyroidism. We will resume the patient's home levothyroxine dose. 5. Prophylaxis. We will continue famotidine for GI prophylaxis and add Lovenox for deep venous thrombosis prophylaxis. Job ID: [id number]
[2018-10-02] MEDS: HYDROcodone/Acetaminophen 5/325 mg Tablet PO PRN ×2 (03:03→09:03)
[2018-10-02] MEDS ORDERED: Levothyroxine Sodium 50 MCG TAB PO SCH (06:00)
[2018-10-02] MEDS ORDERED: LISINOPRIL PO SCH (09:00)
[2018-10-02] MEDS ORDERED: Atenolol 50 MG TAB PO SCH (09:00)
[2018-10-02] MEDS ORDERED: Hydrochlorothiazide 25 MG TAB PO SCH (09:00)
[2018-10-02] MEDS ORDERED: Amlodipine 10 MG TAB PO SCH (09:00)
[2018-10-02] MEDS ORDERED: Aspirin Chewable 81 MG TAB PO SCH (09:00)
[2018-10-02] MEDS ORDERED: Famotidine 20 MG TAB PO SCH (09:00)
[2018-10-02] MEDS ORDERED: HYDROCHLOROTHIAZIDE PO SCH (09:00)
[2018-10-02] MEDS ORDERED: Docusate Sodium 100 MG/10 ML UDCUP PO SCH (09:00)
[2018-10-02] MEDS ORDERED: Lisinopril 10 MG TAB PO SCH (09:00)
[2018-10-02] MEDS: GEMFIBROZIL 600 MG PO SCH (09:13)
[2018-10-02 12:27] VITALS: TEMP 98
[2018-10-02 13:03] VITALS: BP 146/70
--- NOTE | 2018-10-03 03:12 | DIS ---
DATE OF ADMISSION: 10/01/2018 DATE OF DISCHARGE: 10/02/2018 ADMISSION DIAGNOSES: Left and right distal radius fracture, status post fall, hypertension, hyperlipidemia, hypothyroidism. PROCEDURES: 10/01/18; left wrist x-ray shows impacted angulated fracture of the distal radius. Followup left wrist x-ray after reduction shows improvement in angulation of radial fracture. Cannot rule out scapholunate dissociation. 10/01/18; x-ray of the right wrist shows nondisplaced impacted fracture of the distal radius. HOSPITAL COURSE: 83-year-old female presented to [facility] Emergency Department status post fall at home, which resulted in bilateral distal radial fractures with the left one requiring reduction in the emergency room. Both of her distal upper extremities have been splinted and she was admitted for pain control and evaluation by Physical Therapy/Occupational Therapy to ascertain, which durable medical equipment needs that she may have. She has been evaluated and provided a sling with the option to pursue a shower chair, which she can get as an outpatient as needed. The patient typically lives alone; however, she will be discharged to live with her daughter in [place]. She plans to follow up with an orthopedist in [place] regarding her fractures. She has been provided pain medication and we will continue this as an outpatient with a 2-week script. She is feeling well otherwise at this time and amenable to discharge as discussed. DISPOSITION: The patient will be discharged to live with her daughter in [place] and may follow up with myself in the clinic in 1 week. She is to follow up with the orthopedist in [place]. DISCHARGE MEDICATIONS: One new script is [place] 5/325 q.6 hours p.r.n. She will resume her usual medications including; 1. Amlodipine 10 mg p.o. daily. 2. Aspirin 81 mg p.o. daily. 3. Atenolol 25 mg p.o. daily. 4. Famotidine 20 mg p.o. daily. 5. Hydrochlorothiazide 12.5 mg p.o. daily. 6. Levothyroxine 75 mcg p.o. daily. 7. Lisinopril 10 mg p.o. daily. Job ID: [id number]
== END 2018-10-02 12:20 | disposition home or self-care (01) ==
LOC: BURERS 10:56 → BURMED 13:07
PROVIDERS: ADMIT Family Medicine; ATTEND Family Medicine
DX: S52.501A Unspecified fracture of the lower end of right radius, initial encounter for closed fracture (principal); S52.502A Unspecified fracture of the lower end of left radius, initial encounter for closed fracture; I10 Essential (primary) hypertension; E78.5 Hyperlipidemia, unspecified; E03.9 Hypothyroidism, unspecified; Z79.82 Long term (current) use of aspirin; Z79.899 Other long term (current) drug therapy; W01.0XXA Fall on same level from slipping, tripping and stumbling without subsequent striking against object, initial encounter; Y92.009 Unspecified place in unspecified non-institutional (private) residence as the place of occurrence of the external cause
CPT/HCPCS: 25605; 29125; 96372; G0378; J1650

== ENCOUNTER 2021-11-14 10:08 | Outpatient (CLI) | payer MEDICARE | END 2021-11-14 10:09 | disposition home or self-care (01) | LOC: BURRAD 10:08 | PROVIDERS: ATTEND Nurse Practitioner Family | DX: R05.9 Cough, unspecified (principal); Z87.81 Personal history of (healed) traumatic fracture | CPT/HCPCS: 71046 ==

== ENCOUNTER 2022-02-10 13:01 | Emergency (ER) | payer MEDICARE ==
[2022-02-10] MEDS ORDERED: Nitroglycerin 0.4 MG TAB 1 EACH ONE (13:24)
[2022-02-10] MEDS ORDERED: Aspirin Chewable 81 MG TAB ONE (13:24)
[2022-02-10 13:33] LABS: #Basophils 0.1 thou/uL (0.0-0.2); #Eosinphils 0.2 thou/uL (0.0-0.7); #Lymphocytes 2.6 thou/uL (1.20-3.40); #Monocytes 0.9 thou/uL (0.11-0.59); #Neutrophils 10.9 thou/uL (1.40-6.50); %Eosinophils 1.6 % (0.0-10.0); %Lymphocytes 17.3 % (21.0-51.0); %Monocytes 6.3 % (0.0-10.0); %Neutrophils 73.8 % (42.0-75.0); Hemoglobin 12.6 g/dL (12.0-16.0); Mean Corpuscular HGB CONC 32.4 g/dL (32.0-36.0); Mean Corpuscular Hemoglobin 28.5 pg (27.0-31.0); Mean Corpuscular Volume 87.9 fL (78.0-98.0); Mean Platelet Volume 6.5 fL (7.4-10.4); Platelet Count 521 thou/uL (130-400); RBC Distribution Width 13.1 % (11.5-14.5); Red Blood Cell (RBC) Count 4.43 mill/uL (4.20-5.40); White Blood Cell (WBC) Count 14.7 thou/uL (4.8-10.8)
[2022-02-10 13:58] LABS: Bilirubin Negative (Negative); Blood, Urine Small (Negative); Glucose, Urine (Dipstick) Negative (Negative); Ketone, Urine Negative (Negative); Leukocyte Large (Negative); Nitrite Positive (Negative); Protein, Urine (Dipstick) Trace mg/dL (Neg-Trace); Urobilinogen 0.2 mg/dL (Less than 2)
[2022-02-10 13:59] LABS: ALT (SGPT) 15 U/L (8-55); AST (SGOT) 19 U/L (5-34); Albumin 4.4 g/dL (3.4-4.8); Alkaline Phosphatase 135 U/L (40-110); Anion Gap 20 mmol/L (10-20); BUN (Urea Nitrogen) 25 mg/dL (9.8-20.1); Bilirubin, Total 0.2 mg/dL (0.2-1.2); Calc. Creatinine Clearance 0 mL/min (70-130); Calcium 9.3 mg/dL (7.8-10.44); Carbon Dioxide 20 mmol/L (23-31); Chloride 105 mmol/L (98-107); Globulin 3.1 g/dL (2.4-3.5); Glucose 111 mg/dL (83-110); Lipase 58 U/L (8-78); Potassium 4.2 mmol/L (3.5-5.1); Protein, Total 7.5 g/dL (5.8-8.1); Sodium 141 mmol/L (136-145)
[2022-02-10 14:00] LABS: Clarity Cloudy (Clear)
[2022-02-10 14:01] LABS: Bacteria/HPF 2+ HPF (None Seen); RBC/HPF 0-3 HPF (0-3); Squamous Epithelial 0-3 HPF (0-3); WBC/HPF Greater Than 50 HPF (0-3)
[2022-02-10] MEDS ORDERED: cefTRIAXone\\ROCEPHIN 1 GM VIAL ONE (14:24)
[2022-02-10 16:33] LABS: PTT 35.5 sec (22.9-36.1)
== END 2022-02-10 14:35 | disposition home or self-care (01) ==
LOC: BURERS 13:01
DX: R07.89 Other chest pain (principal); N39.0 Urinary tract infection, site not specified; E03.9 Hypothyroidism, unspecified; K21.9 Gastro-esophageal reflux disease without esophagitis; E78.5 Hyperlipidemia, unspecified; I10 Essential (primary) hypertension; Z86.718 Personal history of other venous thrombosis and embolism; Z79.899 Other long term (current) drug therapy; Z79.82 Long term (current) use of aspirin
CPT/HCPCS: 36415; 71045; 80053; 81003; 81015; 83690; 83880; 84484; 85025; 85610; 85730; 93005; 94760; 96374; J0696